=== PATIENT | female | born 1955 | race Caucasian/White ===

== ENCOUNTER 2016-09-29 16:40 | Emergency (ER) | payer BC ==
[2016-09-29] MEDS ORDERED: NS 0.9% 1000 ML* 2,000 ML IV ONE (20:26)
[2016-09-29] MEDS ORDERED: Metoclopramide IV* 5 MG/ML 2 ML VIAL IV ONE (20:26)
[2016-09-29] MEDS ORDERED: Ketorolac INJ* 30 MG/ML 1 ML VIAL IM ONE (20:26)
[2016-09-29] MEDS ORDERED: diPHENhydraMINE IV* 50 MG/ML 1 ml VIAL (BENADRYL) IV ONE (20:28)
[2016-09-29] MEDS ORDERED: Ketorolac INJ* 30 MG/ML 1 ML VIAL IV PUSH ONE (20:31)
[2016-09-29 20:47] LABS: Hematocrit 35 % (35-47); Hemoglobin 11.6 g/dl (12.0-16.0); Mean Corpuscular HGB Conc 34 g/dl (31-36); Mean Corpuscular Hemoglobin 31 pg (27-31); Mean Corpuscular Volume 92 fL (80-97); Mean Platelet Volume 8 um3 (7.4-10.4); Red Blood Count 3.76 10^6/ul (4.0-5.4); Red Cell Distribution Width 13 % (10.5-15); White Blood Count 6.6 10^3/ul (3.5-10.8)
[2016-09-29 21:03] LABS: Albumin 3.5 g/dL (3.2-5.2); BUN/Creatinine Ratio 13.4 (8-20); C Reactive Protein 106.07 mg/L (< 5.00); Calcium 8.8 mg/dL (8.6-10.3); EGFR African American 114.7 (>60); EGFR Non-African American 89.2 (>60); Globulin 3.3 g/dL (2-4); Potassium 3.3 mmol/L (3.5-5.0); Total Bilirubin 0.7 mg/dL (0.2-1.0); Total Protein 6.8 g/dL (6.4-8.9)
--- NOTE | 2016-09-29 21:10 | RAD ---
Indication: Severe headache for one week. Lyme disease. Comparison: No relevant prior exams available on the [facility] [place] PACS for comparison. Technique: Noncontrast CT vertex of skull through foramen magnum. Report: The sulci, ventricles, and basal cisterns are normal for age. Shirley matter white matter differentiation is preserved without evidence for edema. No intra or extra axial hemorrhage, mass, or fluid collection detected. Unremarkable visualized orbital contents. Unremarkable calvarium and skull base. Unremarkable scalp. The visualized paranasal sinuses and mastoid air spaces are clear. IMPRESSION: Negative exam. Unenhanced head CT.
[2016-09-29 22:19] VITALS: BP 106/62
[2016-09-29] MEDS ORDERED: oxyCODONE TAB* 5 MG TAB PO ONE (22:49)
--- NOTE | 2016-09-30 03:37 | ED ---
Tim Valencia Rebecca, scribed for Javier Garay MD on 09/29/16 at 2025 . Headache - HPI Summary HPI Summary: Pt is a 61 y/o F referred from her PCP for a liver US and Brain CT who presents to ED c/o RAUSCH. RAUSCH began 4 days ago and has been intermittent since onset. Pain began in the R temporal region and is now frontal and in the L temporal and currently moderate, ranked 4/10. Sx aggravated by laying down and position change, alleviated by sitting up, unchanged by Aleve. Additionally c/o fatigue, myalgias, decreased appetite, fever and intermittent TMJ pain. Denies slurred speech, weakness, abd pain, rash and dark urine. Reports she had a tick bite 6- 7 weeks ago that was on for about 1 day, slightly engorged. Is not on a blood thinner. Yesterday, PCP (Dr. Stout) did blood work and a Lyme titer which is awaiting results and she was prescribed Doxycycline of which she has taken 3 doses. - History Of Current Complaint Chief Complaint: EDHeadache Stated Complaint: SENT FROM LIVER US-SENT FROM [facility] Time Seen by Provider: 09/29/16 20:09 Hx Obtained From: Patient Onset/Duration: Started days ago - 4 days ago, Still Present Currently Pain Is: Current Pain Scale(0-10)= - 4/10, Moderate Timing: Intermittent, Lasting: Location of Headache: Frontal, Temporal - Bilateral Aggravating Factor: Position Change, Other - Laying down Allevating Factors: Other (Noted In Comments) - Sitting up Associated Signs And Symptoms: Fever, Other (Noted In Comments) - Fatigue, myalgias, decreased appetite and intermittent TMJ pain. Denies slurred speech, weakness, abd pain, rash and dark urine. - Allergies/Home Medications Allergies/Adverse Reactions: Allergies Allergy/AdvReac Type Severity Reaction Status Date / Time No Known Allergies Allergy Verified 09/29/16 20:25 PMH/Surg Hx/FS Hx/Imm Hx Endocrine/Hematology History: Denies: Hx Diabetes Cardiovascular History: Reports: Hx Hypercholesterolemia - Cancer History Hx Chemotherapy: No Hx Radiation Therapy: No Infectious Disease History: No Infectious Disease History: Denies: Traveled Outside the [place] in Last 30 Days - Family History Known Family History: Negative: Hypertension - Social History Alcohol Use: None Substance Use Type: Reports: None Smoking Status (MU): Never Smoked Tobacco Review of Systems Positive: Fever, Fatigue Positive: Other - Intermittent TMJ pain Positive: Other - Decreased appetite. Negative: Abdominal Pain Positive: other - Denies dark urine Positive: Myalgia Negative: Rash Positive: Headache. Negative: Slurred Speech All Other Systems Reviewed And Are Negative: Yes Physical Exam - Summary Physical Exam Summary: The patient is well-nourished in no acute distress and in no acute pain. The skin is warm and dry and skin color reflects adequate perfusion. HEENT: Tenderness over the temporal arteries, bilaterally. The pupils are equal and reactive. Sclera clear, not icteric. The conjunctivae are clear and without drainage. Nares are patent and without drainage. Mouth reveals slightly dry mucous membranes and the throat is without erythema and exudate. The external ears are intact. The ear canals are patent and without drainage. The tympanic membranes are intact. Neck is supple with full range of motion and non-tender. No carotid bruits. No nuchal rigidity. No adenopathy. Respiratory: Chest is non-tender. Lungs are clear to auscultation and breath sounds are symmetrical and equal. Cardiovascular: Hear is regular rate and rhythm. There is no murmur or rub auscultated. There is no peripheral edema and pulses are symmetrical and equal. Abdomen: The abdomen is soft and non-tender. There are normal bowel sounds heard in all four quadrants and there is no organomegaly palpated. Musculoskeletal: There is no back pain noted. Extremities are non-tender with full range of motion. There is good capillary refill of 2 seconds. There is no peripheral edema or calf tenderness elicited. Neurological: Patient is alert and oriented to person, place and time. The patient has symmetrical motor strength in all four extremities. No focal motor weakness appreciated. Psychiatric: The patient has an appropriate affect and does not exhibit any anxiety or depression. Triage Information Reviewed: Yes Vital Signs On Initial Exam: Initial Vitals Temp Pulse Resp BP Pulse Ox 98.7 F 79 18 110/54 98 09/29/16 16:59 09/29/16 16:59 09/29/16 16:59 09/29/16 16:59 09/29/16 16:59 Vital Signs Reviewed: Yes - Arjun Coma Scale Best Eye Response: 4 - Spontaneous Best Motor Response: 6 - Obeys Commands Best Verbal Response: 5 - Oriented Glascow Coma Scale Comments: 15 Diagnostics - Vital Signs Vital Signs Temp Pulse Resp BP Pulse Ox 09/29/16 18:56 98.7 F 74 18 110/50 99 09/29/16 16:59 98.7 F 79 18 110/54 98 - Laboratory Lab Results: Lab Results 09/29/16 09/29/16 09/29/16 Range/Units 20:40 20:40 20:40 WBC 6.6 (3.5-10.8) 10^3/ul RBC 3.76 L (4.0-5.4) 10^6/ul Hgb 11.6 L (12.0-16.0) g/dl Hct 35 (35-47) % MCV 92 (80-97) fL MCH 31 (27-31) pg MCHC 34 (31-36) g/dl RDW 13 (10.5-15) % Plt Count 208 (150-450) 10^3/ul MPV 8 (7.4-10.4) um3 Neut % (Auto) 66.4 (38-83) % Lymph % (Auto) 24.6 L (25-47) % Oliver % (Auto) 7.0 (1-9) % Eos % (Auto) 1.7 (0-6) % Baso % (Auto) 0.3 (0-2) % Absolute Neuts (auto) 4.4 (1.5-7.7) 10^3/ul Absolute Lymphs (auto) 1.6 (1.0-4.8) 10^3/ul Absolute Monos (auto) 0.5 (0-0.8) 10^3/ul Absolute Eos (auto) 0.1 (0-0.6) 10^3/ul Absolute Basos (auto) 0 (0-0.2) 10^3/ul Absolute Nucleated RBC 0 10^3/ul Nucleated RBC % 0 Sodium 138 (133-145) mmol/L Potassium 3.3 L (3.5-5.0) mmol/L Chloride 105 (101-111) mmol/L Carbon Dioxide 28 (22-32) mmol/L Anion Gap 5 (2-11) mmol/L BUN 9 (6-24) mg/dL Creatinine 0.67 (0.51-0.95) mg/dL Est GFR ( Amer) 114.7 (>60) Est GFR (Non-Af Amer) 89.2 (>60) BUN/Creatinine Ratio 13.4 (8-20) Glucose 121 H (70-100) mg/dL Lactic Acid 0.8 (0.5-2.0) mmol/L Calcium 8.8 (8.6-10.3) mg/dL Total Bilirubin 0.70 (0.2-1.0) mg/dL AST 40 H (13-39) U/L ALT 56 H (7-52) U/L Alkaline Phosphatase 357 H (34-104) U/L C-Reactive Protein 106.07 H (< 5.00) mg/L Total Protein 6.8 (6.4-8.9) g/dL Albumin 3.5 (3.2-5.2) g/dL Globulin 3.3 (2-4) g/dL Albumin/Globulin Ratio 1.1 (1-3) Lipase 28 (11.0-82.0) U/L Result Diagrams: 09/29/16 20:40 09/29/16 20:40 Lab Statement: Any lab studies that have been ordered have been reviewed, and results considered in the medical decision making process. - CT Brain CT CT Interpretation: No Acute Changes - Negative exam. Unenhanced head CT. CT Interpretation Completed By: Radiologist - Ultrasound No standard instances Ultrasound Interpretation: No Acute Changes - Abd US: Liver unremarkable. Gallbladder appears normal. No gallstones, pericholecystic fluid or wall thickening. Common bile duct normal caliber, 3 mm. Right kidney unremarkable, measures 10.1 cm. No calculus, mass or hydronephrosis. Abdominal aorta (only the proximal aspect visualized) not aneurysmal. IVC patient. No RUQ ascites. Ultrasound Interpretation Completed By: Radiologist Re-Evaluation - Re-Evaluation First Eval Re-Evaluation Time: 21:54 Change: Improved Comment: The RAUSCH is gone and she feels better. Reviewed labs with the patient. Second Eval Re-Evaluation Time: 22:49 Change: Improved Comment: The pt is feeling better, though she is concerned that her RAUSCH may return. Discussed CT and US results with the pt. Headache Course/Dx - Course Assessment/Plan: Pt is a 61 y/o F referred from her PCP for a liver US and Brain CT who presents to ED c/o intermittent RAUSCH for 4 days. Pain began in the R temporal region and is now frontal and in the L temporal and currently moderate , ranked 4/10. Sx aggravated by laying down and position change, alleviated by sitting up, unchanged by Aleve. Additionally c/o fatigue, myalgias, decreased appetite, fever and intermittent TMJ pain. Denies slurred speech, weakness, abd pain, rash and dark urine. Reports she had a tick bite 6-7 weeks ago that was on for about 1 day, slightly engorged. Is not on a blood thinner. Yesterday, PCP (Dr. Stout) did blood work and a Lyme titer which is awaiting results and was given Doxycycline of which she has taken [address] and Abd US reveal no acute findings. In the ED course, she was administered Reglan, Benadryl and Toradol IV which improved sx. She will be D/C to home with Dx of Lyme DIsease and elevated LFTs with Roxycodone 20 mg PO. She understands and agrees. - Diagnoses Differential Diagnosis/HQI/PQRI: Migraine, Subarachnoid Hemorrhage, Temporal Arteritis, Other - cholelithiasis, ascites, liver failure Provider Diagnoses: Lyme disease, Elevated LFTs Discharge - Discharge Plan Condition: Stable Disposition: HOME Patient Education Materials: Lyme Disease (ED) Referrals: Bri Stout MD [Primary Care Provider] - 3 Days The documentation as recorded by the Tim mobley Rebecca accurately reflects the service I personally performed and the decisions made by me, Javier Garay MD.
--- NOTE | 2016-09-30 07:16 | RAD ---
INDICATION: Elevated liver enzymes. COMPARISON: Comparison is made with a prior abdominal ultrasound from July 11, 2012. TECHNIQUE: Multiple real-time images of the right upper quadrant were obtained. FINDINGS: The gallbladder appear normal. No gallbladder wall thickening or pericholecystic fluid is present. No intra or extrahepatic ductal distention is present. The common bile duct measured 0.3 cm in diameter. The liver is normal in size without significant focal abnormality. The pancreas is partially obscured by overlying bowel gas. The right kidney is normal in size without evidence for hydronephrosis. The proximal portion of the abdominal aorta appeared within normal limits. The mid and distal portion obscured by bowel gas. IMPRESSION: NEGATIVE EXAM.
== END 2016-09-29 23:04 | disposition home or self-care (01) ==
LOC: ED 16:40
DX: A69.20 Lyme disease, unspecified (principal); R94.5 Abnormal results of liver function studies; R50.9 Fever, unspecified; R53.83 Other fatigue
CPT/HCPCS: 36415; 70450; 76705; 80053; 83605; 83690; 85025; 86140; 96372; 96374; 99285; A9270-GY; J1200; J1885